=== PATIENT | male | born 1990 | race African-American/Black ===

== ENCOUNTER 2018-08-25 18:07 | Emergency (ER) | payer OTHER ==
[~2018-08-25] VITALS: Ht 182.9 cm; Wt 81.6 kg
[2018-08-25 18:24] VITALS: BP 161/99
[2018-08-25] MEDS ORDERED: Ketorolac 30mg Inj IM ONE (18:45)
[2018-08-25] MEDS ORDERED: Methocarbamol 500mg tab ORAL ONE (18:45)
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
[2018-08-25] MEDS ORDERED: LIDOCAINE700 M1 TP (19:10)
[2018-08-25] MEDS ORDERED: TYLENOL EXTRA500 MG ORAL (19:10)
[2018-08-25] MEDS ORDERED: ROBAXIN500 MG PO (19:10)
--- NOTE | 2018-08-25 19:20 | Diagnostic Imaging Report ---
EXAM: XR Right Wrist Complete, 3 or More Views CLINICAL HISTORY: PAIN TECHNIQUE: Frontal, lateral and oblique views of the right wrist. COMPARISON: No relevant prior studies available. FINDINGS: Bones/joints: No acute fracture. Soft tissues: No radiodense foreign body. IMPRESSION: No acute fracture.
[2018-08-25 19:21] VITALS: BP 146/82
--- NOTE | 2018-08-25 19:22 | Diagnostic Imaging Report ---
EXAM: XR Cervical Spine, 3 Views CLINICAL HISTORY: PAIN TECHNIQUE: Frontal and lateral views of the cervical spine. COMPARISON: No relevant prior studies available. FINDINGS: Vertebrae: No acute fracture. Normal alignment. Disc spaces: No acute findings. Soft tissues: No radiodense foreign body. IMPRESSION: No fracture or malalignment.
== END 2018-08-25 19:20 | disposition home or self-care (01) ==
LOC: EMR 19:12
DX: S16.1XXA Strain of muscle, fascia and tendon at neck level, initial encounter (principal); V43.52XA Car driver injured in collision with other type car in traffic accident, initial encounter; Y92.410 Unspecified street and highway as the place of occurrence of the external cause
CPT/HCPCS: 72040; 73110; 96372; 99284; J1885

== ENCOUNTER 2018-12-18 10:30 | Inpatient (IN) | payer OTHER ==
[~2018-12-18] VITALS: Ht 180.3 cm; Wt 83.5 kg
[~2018-12-18 10:30] MED LIST: LIDOCAINE700 M1 TP; ROBAXIN500 MG PO; TYLENOL EXTRA500 MG ORAL
[2018-12-21] VITALS (21 sets, daily range): BP systolic 123–147; BP diastolic 69–94
[2018-12-21] MEDS ORDERED: NKM (06:25)
[2018-12-21] MEDS ORDERED: Lidocaine 1% MPF 10mg/ml 5ml ONE (06:56)
[2018-12-21] MEDS ORDERED: fentaNYL 100 mcg/2 mL IV ONE (06:56)
[2018-12-21] MEDS ORDERED: Midazolam 2mg/2ml Inj ONE (06:56)
[2018-12-21] MEDS ORDERED: ceFAZolin sod 1 GM in NS 55 ML IVPB ONE (07:00)
[2018-12-21] MEDS ORDERED: Succinylcholine 20mg/ml 10ml vial ONE (07:06)
[2018-12-21] MEDS ORDERED: TransDerm Scop 1mg/72HR Patch TDERMAL ONE ×2 (07:06→09:00)
[2018-12-21] MEDS ORDERED: Zemuron 50mg/5ml Inj IV ONE (07:06)
[2018-12-21] MEDS ORDERED: Bupivacaine w/Epi 0.5% 30ml Vial INJ ONE (07:18)
[2018-12-21] MEDS ORDERED: Thrombin 5000 units TOPIC ONE (07:18)
[2018-12-21] MEDS ORDERED: Gelfoam Size TOPIC ONE (07:18)
[2018-12-21] MEDS ORDERED: Vancomycin 1gm vial IVPB ONE (07:18)
[2018-12-21] MEDS ORDERED: Bacitracin 50000 Units Vial ONE (07:19)
--- NOTE | 2018-12-21 07:29 | Pre-Procedure Note/Attestation ---
Pre-Procedure Note/Attestation Complete Prior to Procedure Procedure Narrative: ACDF C56 with iliac bone marrow aspiration Indications for Procedure Pre-Operative Diagnosis: Cervical myeloradiculopathy Attestation I attest that I discussed the nature of the procedure; its benefits; risks and complications; and alternatives (and the risks and benefits of such alternatives ), prior to the procedure, with the patient (or the patient's legal retail sales representative). I attest that, if there was a reasonable possibility of needing a blood transfusion, the patient (or the patient's legal retail sales representative) was given the [facility] standardized written summary, pursuant to the Candido Tim Blood Safety Act ([place] Health and Safety Code # 1645, as amended). I attest that I re-evaluated the patient just prior to the surgery and that there has been no change in the patient's H&P, except as documented below: Mateo Bailon MD Dec 21, 2018 07:29
[2018-12-21] MEDS ORDERED: LR 1000ml ONE (07:30)
[2018-12-21] MEDS ORDERED: Neostigmine 1mg/ml 10ml Inj ONE (07:30)
[2018-12-21] MEDS ORDERED: Propofol 1,000mg/ 100ml btl IV ONE (07:30)
[2018-12-21] MEDS ORDERED: Sterile Water Irrig 1000ml IRRIG ONE (07:30)
[2018-12-21] MEDS ORDERED: Morphine Sulfate 10mg/ml Inj ONE (08:18)
[2018-12-21] MEDS ORDERED: Glycopyrrolate 0.2mg/ml 1ml Vial ONE (08:19)
[2018-12-21] MEDS ORDERED: Ketorolac 30mg Inj ONE (08:19)
[2018-12-21] MEDS ORDERED: Sodium Chloride 10ml vial INJ ONE (08:19)
--- NOTE | 2018-12-21 08:28 | Anethesia Preoperative Eval ---
Anesthesia Pre-op PMH/ROS General Date of Evaluation: Dec 21, 2018 Time of Evaluation: 07:20 Anesthesiologist: Narcisa ASA Score: ASA 2 Mallampati Score Class I : Soft palate, uvula, fauces, pillars visible Class II: Soft palate, uvula, fauces visible Class III: Soft palate, base of uvula visible Class IV: Only hard plate visible Mallampati Classification: Class II Surgeon: Adamaris Diagnosis: Cervical radiculopathy Surgical Procedure: ACDF C5-C6 Anesthesia History: none Family History: no anesthesia problems Allergies: Coded Allergies: No Known Allergies (Unverified , 08/25/18) Patient NPO?: Yes NPO Date: Dec 20, 2018 NPO Time: 2229 Past Medical History Cardiovascular: Denies: HTN, CAD, CA, valve dz, arrhythmia, other Pulmonary: Denies: asthma, COPD, LISHA, other Gastrointestinal/Genitourinary: Reports: GERD - mild; Denies: CRI, ESRD, other Neurologic/Psychiatric: Denies: dementia, CVA, depression/anxiety, TIA, other Endocrine: Denies: DM, hypothyroidism, steroids, other HEENT: Denies: cataract (L), cataract (R), glaucoma, [facility] (L), [facility] (R), other Hematology/Immune: Denies: anemia, DVT, bleeding disorder, other Musculoskeletal/Integumentary: Denies: OA, RA, DJD, DDD, edema, other PMH Narrative: as above PSxH Narrative: None Anesthesia Pre-op Phys. Exam Physician Exam Last Vital Signs Date Time Temp Pulse Resp B/P (MAP) Pulse Ox O2 Delivery O2 Flow Rate FiO2 12/21/18 06:26 Room Air 12/21/18 06:25 97.1 61 18 123/81 (95) 98 Constitutional: NAD Neurologic: CN 2-12 intact Cardiovascular: RRR, no M/R/G Respiratory: CTA Gastrointestinal: S/NT/ND Airway Exam Mallampati Score: Class II MO: full Neck: flexible ROM: full Teeth: intact Dentures: no upper, no lower Anesthesia Pre-op A/P Labs see chart Studies Pre-op Studies: EKG - NSR Risk Assessment & Plan Assessment: ASA 2 Plan: GA with ETT PONV prevention neuromonitoring Status Change Before Surgery: No Pre-Antibiotics Drug: Ancef 2gr. Given Within 1 Hr of Incision: Yes Time Given: 07:52 Kenneth Brewster MD Dec 21, 2018 08:28
[2018-12-21] MEDS ORDERED: Midazolam 2mg/2ml Inj IVP PRN (08:30)
[2018-12-21] MEDS ORDERED: LR 1000ml 1,000 ML IVLG SCH (08:30)
[2018-12-21] MEDS ORDERED: Meperidine 50mg/ml Inj(FOR RIGORS ONLY) IV PRN (08:30)
[2018-12-21] MEDS ORDERED: Ketorolac 30mg Inj IV PRN (08:30)
[2018-12-21] MEDS ORDERED: Metoclopramide 10mg/2ml Inj IVP PRN (08:30)
[2018-12-21] MEDS ORDERED: DiphenhydrAMINE 50mg/ml Inj IVP PRN (08:30)
[2018-12-21] MEDS ORDERED: Acetaminophen (Non formulary) 100 ML IV ONE (08:30)
[2018-12-21] MEDS ORDERED: Hydromorphone 0.5mg/0.5ml inj IVP PRN (08:30)
[2018-12-21] MEDS ORDERED: Dexamethasone 4mg/ml vial ONE (08:40)
[2018-12-21] MEDS ORDERED: NS Irrig 1000ml IRRIG ONE (08:51)
[2018-12-21] MEDS ORDERED: Norco 5mg/325mg tab ORAL PRN (10:15)
[2018-12-21] MEDS ORDERED: Milk of Magnesia 30ml Ud ORAL PRN (10:15)
[2018-12-21] MEDS ORDERED: Naloxone 0.4mg/ml Inj IVP PRN (10:15)
[2018-12-21] MEDS ORDERED: HYDROmorphone 1mg/ml Carpuject SUBQ PRN (10:15)
[2018-12-21] MEDS ORDERED: HYDROcodone/Acetamin 7.5/325 tab ORAL PRN ×2 (10:15)
--- NOTE | 2018-12-21 10:18 | Brief Operative Note ---
Immediate Post Operative Note Operative Note Pre-op Diagnosis: Cervical myeloradiculopathy Procedure: ACDF C56 with Iliac BMAC Post-op Diagnosis: same as pre-op Findings: consistent w/pre-op dx studies Surgeon: Adamaris Insurance Auditor: Alex Anesthesiologist: Narcisa Anesthesia: general Specimen: yes Complications: none Condition: stable Fluids: 1L Estimated Blood Loss: minimal - 10cc Drains: none Implant(s) used?: Yes Mateo Bailon MD Dec 21, 2018 10:18
--- NOTE | 2018-12-21 10:33 | Immediate Post-Op Evaluation ---
Immediate Post-Op Evalulation Immediate Post-Op Evalulation Procedure: ACDF C5-C6 Date of Evaluation: Dec 21, 2018 Time of Evaluation: 10:32 IV Fluids: 1000 Blood Products: none Estimated Blood Loss: min Urinary Output: none Blood Pressure Systolic: 136 Blood Pressure Diastolic: 86 Pulse Rate: 92 Respiratory Rate: 20 O2 Sat by Pulse Oximetry: 99 Temperature (Fahrenheit): 97.6 Pain Score (1-10): 1 Nausea: No Vomiting: No Complications none Patient Status: reacts, patent, extubated, none Hydration Status: adequate Kenneth Brewster MD Dec 21, 2018 10:33
--- NOTE | 2018-12-21 12:19 | Diagnostic Imaging Report ---
Indication: Intraoperative imaging. Cervical fusion Findings: 3 fluoroscopic views of the cervical spine were obtained. Localization image followed by anterior fusion cervical discectomy at C5-6 noted. IMPRESSION: Intraoperative imaging
--- NOTE | 2018-12-21 12:25 | NUR ---
NURSE NOTES: Faye Flores RN brought patient by bed in stable condition. Alert and oriented x4. Complain of shafer 7/10 on surgical site. Pain medication given by Recovery nurse and will continue to monitor. Skin intact and dry. Surgical dressing stained and marked. Will continue to monitor. IV dressing intact and dry. No bleeding or swelling on IV site. IV fluid on going as ordered. Belonging given to family member. Bed lowest position. Call light within reach. Will continue to monitor.
[2018-12-21] MEDS: D5 1/2NS 1,000 ML IV SCH ×2 (13:03→22:17)
[2018-12-21] MEDS ORDERED: ceFAZolin sod 1 GM in D5W 55 ML IV SCH (14:00)
--- NOTE | 2018-12-21 14:00 | NUR ---
NURSE NOTES: Received patient from Sancho Delaney RN, patient is up in bed and relaxing, no distress noted, at bedside, call light within reach, bed is locked and in lowest position.
[2018-12-21] MEDS: ceFAZolin sod 1 GM in D5W 55 ML IV SCH ×2 (17:19→23:53)
[2018-12-21] MEDS: Docusate 100mg cap ORAL SCH (17:28)
--- NOTE | 2018-12-21 19:23 | NUR ---
NURSE NOTES: Received report from Ezra ARANDA. Pt is A&O x4 laying semi-fowlers in bed. No signs of pain or distress. IV site dry & intact, infusing IV fluids. Surgical dressings C/D/I. Neck collar at bedside. RT called for IS. Parents at bedside. Call light in reach, bed in lowest position, side rails up x2. Will continue to monitor pt. Addendum: 12/21/18 at 5 by Tam Bennett RN Surgical dressing on right neck, slightly saturated. Serosanguinous stain.
--- NOTE | 2018-12-21 19:35 | NUR ---
HAND-OFF: Report given to Tam ARANDA.
[2018-12-22] VITALS: BP 149/80
[2018-12-22 04:00] VITALS: BP 113/68
--- NOTE | 2018-12-22 07:30 | NUR ---
HAND-OFF: Report given to Lucia ARANDA. Pt is stable.
--- NOTE | 2018-12-22 07:33 | NUR ---
NURSE NOTES: Pt awake sitting up in bed. is at bedside. Diet upgrade offered. Stated he was attempt to eat broth. Denies pain at this time. Call light is in reach. No signs of distress, breathing room air. Current plan of acre will be followed
[2018-12-22 08:00] VITALS: BP 112/70
[2018-12-22] MEDS: ceFAZolin sod 1 GM in D5W 55 ML IV SCH (09:16)
[2018-12-22] MEDS: Docusate 100mg cap ORAL SCH (09:16)
[2018-12-22] MEDS: D5 1/2NS 1,000 ML IV SCH (09:17)
--- NOTE | 2018-12-22 09:27 | 48 Hour Post Anesthesia Eval ---
Post Anesthesia Evaluation Procedure: ACDF C5-C6 Date of Evaluation: Dec 22, 2018 Time of Evaluation: 06:20 Blood Pressure Systolic: 113 0: 68 Pulse Rate: 72 Respiratory Rate: 20 Temperature (Fahrenheit): 98.3 O2 Sat by Pulse Oximetry: 98 Airway: patent Nausea: No Vomiting: No Pain Intensity: 2 Hydration Status: adequate Cardiopulmonary Status: at baseline Mental Status/LOC: patient returned to baseline Post-Anesthesia Complications: 0 Follow-up care needed: N/A - further care as per primary team Jenise Lyons MD Dec 22, 2018 09:27
--- NOTE | 2018-12-22 10:13 | General Progress Note ---
Subjective Allergies: Coded Allergies: No Known Allergies (Unverified , 08/25/18) Subjective Pt doing well post op. No arm pain. Min neck pain . C collar in place O: AVSS and A and O times 3 inc dressing cdi 5/5 motor ue and le calves soft and nt lt intact A: Doing well P: oob and pt c collar discharge instructions given fu in 7 days Objective Last 24 Hour Vital Signs Date Time Temp Pulse Resp B/P (MAP) Pulse Ox O2 Delivery O2 Flow Rate FiO2 12/22/18 09:27 72 20 98 12/22/18 04:00 98.3 72 20 113/68 (83) 98 12/22/18 00:00 97.5 70 20 149/80 (103) 98 12/21/18 21:00 Room Air 12/21/18 20:00 97.3 84 20 147/85 (105) 98 12/21/18 16:00 97.6 75 19 136/81 (99) 99 12/21/18 15:00 97.3 82 19 137/85 (102) 98 12/21/18 14:00 97.6 85 19 136/83 (100) 100 12/21/18 13:30 97.0 77 19 140/82 (101) 99 12/21/18 13:00 97.6 72 18 126/72 (90) 98 12/21/18 12:30 97.4 80 18 132/93 (106) 100 12/21/18 12:25 98.0 12/21/18 12:05 78 17 136/76 100 Nasal Cannula 3 12/21/18 12:00 74 16 124/77 100 Nasal Cannula 3 12/21/18 11:50 71 15 131/72 100 Nasal Cannula 3 12/21/18 11:43 97.2 72 16 123/69 100 Nasal Cannula 3 12/21/18 11:42 72 16 123/69 100 Nasal Cannula 3 12/21/18 11:28 77 16 128/78 100 Nasal Cannula 3 12/21/18 11:15 74 16 123/72 100 Nasal Cannula 3 12/21/18 11:05 73 16 124/71 100 Nasal Cannula 3 12/21/18 10:55 79 21 143/83 100 Nasal Cannula 3 12/21/18 10:45 81 19 135/84 100 Nasal Cannula 3 2/7/19 10:40 84 18 138/84 100 Nasal Cannula 3 12/21/18 10:35 89 19 135/84 100 Simple Mask 6 12/21/18 10:33 92 20 99 12/21/18 10:29 98.2 92 20 126/94 100 Simple Mask 6 Intake and Output 12/21/18 12/22/18 19:00 07:00 Intake Total 1860 ml 1400 ml Output Total 20 ml Balance 1840 ml 1400 ml Intake Oral 60 ml 600 ml IV Total 1800 ml 800 ml Output Estimated Blood Loss 20 ml # Voids 2 7 Height (Feet): 5 Height (Inches): 11.00 Weight (Pounds): 184 Mateo Bailon MD Dec 22, 2018 10:13
--- NOTE | 2018-12-22 10:41 | NUR ---
REHAB MED PT NOTE CONSULT GORDON FLOODTED, PATIENT WILL BENEFIT FROM SKILLED PT DURING STAY FOR RETURN TO [facility]. RECOMMEND HOME AT [place]. SPINAL PRECAUTIONS REVIEWED. PATRICE CHOPRA. PLAN OF CARE INITIATED DARRIN CHAVEZ PT DPT Addendum: 12/22/18 at 1041 by DARRIN CHAVEZ PT Amended: Links added.
[2018-12-22 12:00] VITALS: BP 116/87
--- NOTE | 2018-12-22 12:15 | NUR ---
NURSE NOTES: Spoke to regarding discharge with new order - 1. Patient cleared to discharge. Order noted and carried out.
[2018-12-22] MEDS ORDERED: NORCO 5-325 TA1 EACH ORAL (13:39)
--- NOTE | 2018-12-22 14:15 | NUR ---
NURSE NOTES: Pt discharged provided with discharged instructions. Provided with prescriptions. No complaints of pain. remained at bedside. IV d/c. Personal belonging such as clothing patient discharged with clothing. Provided with possible signs and symptoms of infection to report to MD. Pt will follow up with primary MD.
[2018-12-22] MEDS ORDERED: D5 1/2NS 1000ml IV ONE (14:19)
--- NOTE | 2018-12-22 19:30 | Operative Note - Dictated ---
PREOPERATIVE DIAGNOSIS: C5-C6 disc extrusion with spinal cord compression, nerve root compression, stenosis, and myeloradiculopathy. POSTOPERATIVE DIAGNOSIS: C5-C6 disc extrusion with spinal cord compression, nerve root compression, stenosis, and myeloradiculopathy. PROCEDURE PERFORMED: 1. Anterior cervical diskectomy and interbody fusion at C5-C6 allograft, local autograft, and bone marrow aspirate concentrate. 2. Anterior cervical instrumentation at C5-C6. 3. Application of biomechanical device at C5-C6. 4. Acquisition of bone marrow aspirate from the right ilium. SURGEON: Mateo Bailon M.D. CALL CENTER AGENT: Sekou Johnson M.D. ANESTHESIA: General endotracheal anesthesia. ANESTHESIOLOGIST: Kenneth Brewster M.D. EBL: 10 mL. FLUIDS: 1 liter fluids. COMPLICATIONS: None. SPECIMEN: C5-C6 disk. BACKGROUND: This is a pleasant gentleman, who has failed nonoperative treatment and option for above treatment was given. Risks, alternatives, and benefits were discussed with the patient at length. The risks include, but are not limited to anesthesia complications including , medical complications including liver, kidney, cardiopulmonary deficits, bleeding, infection, dysphonia, dysphagia, hematoma of the neck, nerve root injury, paralysis, spinal cord injury, CSF leak, dural tear, fracture of the hardware, loosening of the hardware, need for revision, decompression and fusion, swallowing difficulties, esophageal injury, tracheal injury, recurrent laryngeal nerve injury as well as other complications including compartment syndrome. The patient understood and he wished to proceed. Written and verbal consent was given. All the patient's questions were answered. No guarantees were given. OPERATIVE FINDINGS: Herniated nucleus pulposus at C5-C6 with spinal cord compression, bilateral exiting nerve root impingement, foraminal stenosis. OPERATION: The patient was brought in to the operative room supine on a stretcher. Appropriate IV lines were placed by the anesthesiologist. 2 g of Ancef was administered. Neural monitoring leads were placed and dermatomal SSEP and EMG were recorded throughout the case and remained stable. The patient was induced and intubated without complications. The patient was positioned onto the operating room table. The neck was placed into neutral alignment. The arms were tucked by the side. All bony prominences were well padded as well as the fourth extremity. Preoperative fluoroscopy revealed the planned incision to be over the C5-C6 interspace. The neck was prepped and draped in the usual sterile fashion with alcohol, chlorhexidine scrub, and ChloraPrep. At this point, an incision was carried out with a scalpel on the anterior right side of the neck in the crease of the neck. Hemostasis was achieved with the bipolar cautery. The platysma was incised in line with the skin incision. Blunt dissection was carried out in the interval between the strap muscles and the sternocleidomastoid. Superficial cervical fascia was dissected caudally as well as cephalad. Carotid pulse was palpated and was found to be low lateral to the field of dissection. The deep cervical fascia was encountered. Once the deep cervical fascia was found blunt dissection with Kittners was used as well as finger dissection to find the prevertebral space. The longus coli was found on both sides of the spine and was subperiosteally dissected off of the spine. At this point, retractors were set into place. Spinal needle was used to identify the C5-C6 interspace. Lateral fluoroscopy was used to confirm this and this is all done with the intraoperatively sterilely draped microscope and disk was used from the beginning of the case through skin closure. At this point with a #15 scalpel, a box incision was made into the anterior annulus and straight curved curette as well as #2 and #3 Kerrison punches and a radical diskectomy was accomplished. All disk material was removed to the level of the posterior longitudinal ligament. A high-speed drill was used to do an uncovertebrectomy and removed the medial aspect of the uncovertebral joint to the posterior longitudinal ligament. Once this was accomplished, a large disk herniation was found compressing on the spinal cord and with intraforaminal extension causing compression onto the bilateral exiting nerve roots at C5-C6, mainly the C6 nerve roots. A high-speed drill was used to drill the posterior aspect of the vertebral bodies of C5 and C6 and the local autograft was saved for later implantation into the interbody device. Please note that the right iliac crest was also prepped and draped in the usual sterile fashion before the skin incision for the cervical spine and before the skin incision for the cervical spine, a Jamshidi needle was placed into the iliac crest in 3 different locations and a total of 30 mL of bone marrow was aspirated and sent off superiorly for concentration for stem cells. The posterior longitudinal ligament was removed with #1 and #2 forward and back angled Microsect curette and a subligamentous disc herniation was found as well causing her neural compression. All disk material was removed and a complete decompression of the spinal cord, the central spinal canal, the lateral recess, the foramina entail as well as complete decompression of the exiting C6 nerve roots bilaterally. Once this was accomplished, Valsalva at 40 mmHg was done. There was no CSF leak and attention was diverted for placement of the biomechanical interbody device. Different trials from the [employer] 3D system was used and a 16.5 x 14 mm x 7 mm in height, 7 degree lordosis [employer], 3D biomechanical device was chosen was packed with local autograft, Wheeler allograft, and bone marrow aspirate concentrate and was tamped into place at C5-C6 with excellent apposition against the endplates, recreation of disk height and lordosis at C5-C6, now a RTI [place] plate 12 mm in length was chosen, was bent into a lordotic shape, and was fixed to the anterior surface of the C5 and C6 vertebral bodies with self drilling 16 mm screws at C5 and 14 mm screws at C6 with excellent purchase of each screw and the screw sat below the locking mechanism off the cervical plate appropriately, final AP and lateral fluoroscopy revealed all instrumentation to be in excellent position. All sponge, needle, and instrument counts were correct. There was no bleeding and therefore, a drain was deemed not to be necessary. The platysma was closed with 3-0 Vicryl sutures. The subcuticular and subdermal layers were closed with 4-0 Monocryl. Dermabond and sterile dressing tape was placed. The patient was extubated in stable condition, was taken to the recovery room in stable, good condition and was found to be neurovascularly intact. The patient was admitted to the hospital for monitoring. Mateo Bailon M.D. DR: ELISA JOB#: [id number] CC: CRISTY
--- NOTE | 2018-12-24 13:20 | Discharge Summary ---
Discharge Summary Hospital Course Date of Admission Dec 21, 2018 at 05:35 Date of Discharge Dec 22, 2018 at 14:20 Admitting Diagnosis Cervical radiculopathy Reason for Hospitalization: Elective surgery HPI Daniel Robbins is a 28 year old male who was admitted on Dec 21, 2018 at 05:35 for cervical radiculopathy . Patient was admitted for elective surgery. Procedures s/p 12/21/[address]ailon 1. Anterior cervical diskectomy and interbody fusion at C5-C6 allograft, local autograft, and bone marrow aspirate concentrate. 2. Anterior cervical instrumentation at C5-C6. 3. Application of biomechanical device at C5-C6. 4. Acquisition of bone marrow aspirate from the right ilium. Hospital Course status post surgery course of recovery uneventful initially IV fluids s/p perioperative antibiotics neurovascular status closely monitored, stable C collar in place incision wit and minimal neck pain pain management was addressed, and pain was controlled hemodynamically stable ambulated with PT fall precautions maintained; safe for ambulation tolerated liquid diet , IV fluids discontinued throat lozenges as needed for throat discomfort provided slowly advance diet to soft as tolerated for the next few days GI prophylaxis provided antiemetics were on board as needed voided freely bowel regimen instituted patient was stable for discharge discharge instructions provided, use of cervical collar reinforced follow up with surgeon in 7 days FINAL DIAGNOSIS Cervical myeloradiculopathy s/p Anterior cervical diskectomy and interbody fusion at C5-C6 allograft, local autograft, and bone marrow aspirate concentrate. Discharge Medications Continued Medications: Hydrocodone Bit/Acetaminophen 5-325* (Buchanan 5-325*) 1 Each Tablet 1 TAB ORAL Q4H PRN for For Pain, #50 TAB 0 Refills (This prescription has been renewed) Discharge Discharge Disposition Patient was discharged to Home () Discharge Instructions Discharge Instructions Special Instructions I have been assigned to complete a D/C Summary on this account. I was not involved in the patient management Rama Foley NP Dec 24, 2018 13:20
== END 2018-12-22 14:20 | disposition home or self-care (01) | DRG 473 ==
LOC: SDSOVERFLO 12-21 05:35 → 3E 12-21 12:25
PROC: 07DR3ZZ Extraction of Iliac Bone Marrow, Percutaneous Approach (ICD-10-PCS; principal; 2018-12-21 07:30)
PROC: 0RT30ZZ Resection of Cervical Vertebral Disc, Open Approach (ICD-10-PCS; principal; 2018-12-21 07:30)
PROC: 0RG10A0 Fusion of Cervical Vertebral Joint with Interbody Fusion Device, Anterior Approach, Anterior Column, Open Approach (ICD-10-PCS; principal; 2018-12-21 07:30)
DX: M50.022 Cervical disc disorder at C5-C6 level with myelopathy (principal); M48.02 Spinal stenosis, cervical region
CPT/HCPCS: 36415; 72040; 76001; 86850; 86900; 86901; 87081; J2250; J2405; J2710